=== PATIENT | male | born 1990 ===

== ENCOUNTER 2016-09-20 17:53 | Emergency (ER) | payer MEDICAID ==
[2016-09-20 17:53] VITALS: BMI 38.0
[2016-09-20 17:58] VITALS: BP 157/72; PULSE 98; RESP 20; TEMP 98; O2SAT 98
--- NOTE | 2016-09-20 18:35 | ED PDOC ---
HPI: Wound Care - HPI Time Seen by Provider: 09/20/16 17:59 Chief Complaint (Nursing): ENT Problem Chief Complaint (Provider): RIGHT facial pain History Per: Patient Exam Limitations: no limitations Onset/Duration Of Symptoms: Days (2), Gradual Additional Complaint(s): sustained puncture wound to RIGHT side of face, near nose, around 1230am 09/19/16 while at work (pt works overnight shifts). No loc, nausea, vomiting, focal weakness, or blurry vision. treated and released at [facility] after nasal radiographs and wound closure with skin adhesive progressive pain to site since yesterday afternoon, radiating from wound to cheek and side of nose, associated with swelling and headache to RIGHT side of head, as well as dizziness taking ibuprofen with some relief but concerned about pain, and concerned about wound care Past Medical History Reviewed: Historical Data, Nursing Documentation, Vital Signs Vital Signs: Last Vital Signs Temp 98.0 F 09/20/16 17:55 Pulse 98 H 09/20/16 17:55 Resp 20 09/20/16 17:55 BP 157/72 H 09/20/16 17:55 Pulse Ox 98 09/20/16 17:55 - Medical History PMH: No Chronic Diseases - Surgical History Surgical History: Tonsillectomy - Family History Family History: States: Diabetes (Mother and Father) - Home Medications Home Medications: Ambulatory Orders Medication Instructions Recorded Albuterol 0.083% [Albuterol 3 ml IH Q4 #100 neb 08/26/16 Sulfate 3 Ml] Albuterol HFA [Ventolin HFA 90 2 puff IH [id number] #1 puff 08/26/16 mcg/actuation (8 g)] Amoxicillin/Clavulanate [Augmentin 1 tab PO BID #14 tab 09/20/16 875 MG-125 MG] traMADol [Ultram] 50 mg PO TID PRN #15 tab 09/20/16 - Allergies Allergies/Adverse Reactions: Allergies Allergy/AdvReac Type Severity Reaction Status Date / Time No Known Allergies Allergy Verified 09/19/16 01:28 Review of Systems Constitutional: Negative for: Fever, Chills Eyes: Negative for: Vision Change ENT: Positive for: Ear Pain. Negative for: Nose Discharge, Mouth Pain Musculoskeletal: Negative for: Neck Pain Skin: Positive for: Lesions Neurological: Positive for: Headache, Dizziness. Negative for: Weakness, Numbness, Altered Mental Status Physical Exam - Reviewed Nursing Documentation Reviewed: Yes Vital Signs Reviewed: Yes - Physical Exam Appears: Positive for: Well, No Acute Distress Head Exam: Positive for: NORMOCEPHALIC Skin: Positive for: Warm, Dry Eye Exam: Positive for: EOMI, PERRL ENT: Positive for: Other (No dental pains). Negative for: Pharyngeal Erythema, Tonsillar Exudate Neck: Positive for: Painless ROM, Supple, Trachea Midline Lymphatic: Negative for: Adenopathy Neurologic/Psych: Positive for: Alert. Negative for: Motor/Sensory Deficits Comments: RIGHT cheek: skin adhesive treated wound on lateral fold of nose (base of ala), clean, dry and intact. No erythema. Subtle edema to RIGHT medial cheek near wound with ttp at this site and along lateral nasal bridge. - ECG O2 Sat by Pulse Oximetry: 98 Disposition - Clinical Impression Clinical Impression: Facial contusion, Visit for wound check Counseled Patient/Family Regarding: Studies Performed, Diagnosis, Need For Followup, Rx Given - Disposition Referrals: [facility] [Provider Group] - 09/21/16 Disposition: Routine/Home Disposition Time: 18:20 Condition: STABLE Additional Instructions: CONTINUE MOTRIN FOR MILD TO MODERATE PAIN. PLACE COVERED ICE PACK TO FACE FOR 10-15 MINUTES A TIME 3-4 TIMES A DAY. RETURN TO ER IMMEDIATELY FOR FEVER, WOUND OPENING, BLEEDING, OR ANY OTHER WORRISOME SYMPTOMS. OTHERWISE FOLLOW UP AT [facility] TOMORROW FOR REEVALUATION. Prescriptions: Amoxicillin/Clavulanate [Augmentin 875 MG-125 MG] 1 tab PO BID #14 tab traMADol [Ultram] 50 mg PO TID PRN #15 tab PRN Reason: SEVERE PAIN ONLY Instructions: Skin Adhesive Care (ED), Facial Contusion (ED), Facial Laceration (ED) Forms: [facility] ED School/Work Excuse
== END 2016-09-20 18:48 | disposition home or self-care (01) ==
LOC: H.ER 17:53
DX: Z48.00 Encounter for change or removal of nonsurgical wound dressing (principal); R51 Headache

== ENCOUNTER 2017-04-11 10:49 | Emergency (ER) | payer MEDICAID ==
[2017-04-11 10:50] VITALS: BMI 38.0
[2017-04-11 11:17] VITALS: BP 148/88; PULSE 108; RESP 18; TEMP 98.1; O2SAT 99
--- NOTE | 2017-04-11 11:49 | ED PDOC ---
HPI: Wound Care - HPI Time Seen by Provider: 04/11/17 11:06 Chief Complaint (Nursing): Upper Extremity Problem/Injury Chief Complaint (Provider): abscess to right arm History Per: Patient Additional Complaint(s): 26-year-old male presents with painful abscess to right axillary region x 2 days. Patient shaved area the other day and sooner after developed infection. He denies active drainage or bleeding. He denies fever or chills. Past Medical History Reviewed: Historical Data, Nursing Documentation, Vital Signs Vital Signs: Last Vital Signs Temp 98.1 F 04/11/17 11:11 Pulse 108 H 04/11/17 11:11 Resp 18 04/11/17 11:11 BP 148/88 04/11/17 11:11 Pulse Ox 99 04/11/17 11:11 - Medical History PMH: No Chronic Diseases - Surgical History Surgical History: Tonsillectomy - Family History Family History: States: Diabetes (Mother and Father) - Living Arrangements Living Arrangements: With Family - Social History Current smoker - smoking cessation education provided: Yes Alcohol: None Drugs: Denies - Home Medications Home Medications: Ambulatory Orders Medication Instructions Recorded Albuterol 0.083% [Albuterol 3 ml IH Q4 #100 neb 08/26/16 Sulfate 3 Ml] Albuterol HFA [Ventolin HFA 90 2 puff IH [id number] #1 puff 08/26/16 mcg/actuation (8 g)] Amoxicillin/Clavulanate [Augmentin 1 tab PO BID #14 tab 09/20/16 875 MG-125 MG] traMADol [Ultram] 50 mg PO TID PRN #15 tab 09/20/16 Clindamycin [Cleocin] 1 tab PO QID #28 cap 04/11/17 Ibuprofen [Motrin] 600 mg PO Q6 PRN #15 tab 04/11/17 - Allergies Allergies/Adverse Reactions: Allergies Allergy/AdvReac Type Severity Reaction Status Date / Time No Known Allergies Allergy Verified 09/19/16 01:28 Review of Systems ROS Statement: Except As Marked, All Systems Reviewed And Found Negative Constitutional: Negative for: Fever Skin: Positive for: Other (abscess to right axiallary region) Physical Exam - Reviewed Nursing Documentation Reviewed: Yes Vital Signs Reviewed: Yes - Physical Exam Appears: Positive for: Well, Non-toxic, No Acute Distress Skin: Negative for: Rash Eye Exam: Positive for: Normal appearance Extremity: Positive for: Other (2 cm indurated, nonfluctuant abscess noted to right axillary region with localized erythema, no erythematous streaking, moderate tenderness to palpation, no central pointing, no active drainage or bleeding) Neurologic/Psych: Positive for: Alert, Oriented - ECG O2 Sat by Pulse Oximetry: 99 Pulse Ox Interpretation: Normal Medical Decision Making Medical Decision Making: Impression: right axillary abscess PO motrin given in ED. Rx clindamycin and motrin given. Patient was instructed to apply warm compresses to affected area. Advised wound recheck in 2-3 days. Disposition - Clinical Impression Clinical Impression: Abscess - Patient ED Disposition Is Patient to be Admitted: No Counseled Patient/Family Regarding: Diagnosis, Need For Followup, Rx Given - Disposition Referrals: [facility] [Provider Group] Disposition: Routine/Home Disposition Time: 11:50 Condition: STABLE Additional Instructions: Apply warm compresses with Epsom salts to affected area as often as possible. Take prescription meds as directed. However wound reevaluated insulin to 3 days. Prescriptions: Clindamycin [Cleocin] 1 tab PO QID #28 cap Ibuprofen [Motrin] 600 mg PO Q6 PRN #15 tab PRN Reason: Pain, Moderate (4-7) Instructions: Abscess (ED)
== END 2017-04-11 12:01 | disposition home or self-care (01) ==
LOC: H.ER 10:49
DX: L02.411 Cutaneous abscess of right axilla (principal)